=== PATIENT | male | born 1995 | race Caucasian/White ===

== ENCOUNTER 2017-01-14 22:42 | Emergency (ER) | payer SELFPAY ==
[~2017-01-14] VITALS: Ht 180.3 cm; Wt 86.2 kg
[2017-01-14 23:01] VITALS: BP 153/73
--- NOTE | 2017-01-15 00:24 | PHYS DOC ---
Past Medical History Past Medical History: Anxiety, Depression, Other Additional Past Medical Histor: TOURETTE'S Past Surgical History: Other Additional Past Surgical Histo: TESTICLE Alcohol Use: None Drug Use: Opiates Adult General Chief Complaint Chief Complaint: DRUG ABUSE HPI HPI 21-year-old male with a history of paranoid schizophrenia now presents the emergency department because he's been abusing drugs any was thinking about getting detox services. Patient denies suicidality or homicidality. He has not overdosed. Patient states he did bump his forehead against a wall recently creating a scab but his tetanus up-to-date and he has no headache or intent to hurt himself at all this point. He states he's been able to function with his normal activities of daily living, and is not currently having any hallucinations of any kind. He has no other complaints Review of Systems Review of Systems Constitutional: Denies fever or chills [] Eyes: Denies change in visual acuity, redness, or eye pain [] HENT: Denies nasal congestion or sore throat [] Respiratory: Denies cough or shortness of breath [] Cardiovascular: No additional information not addressed in HPI [] GI: Denies abdominal pain, nausea, vomiting, bloody stools or diarrhea [] : Denies dysuria or hematuria [] Musculoskeletal: Denies back pain or joint pain [] Integument: Denies rash or skin lesions [] Neurologic: Denies headache, focal weakness or sensory changes [] Endocrine: Denies polyuria or polydipsia [] All other systems were reviewed and found to be within normal limits, except as documented in this note. Allergies Allergies Allergies Coded Allergies Type Severity Reaction Last Updated Verified No Known Drug Allergies 01/14/17 No Physical Exam Physical Exam Patient with healing scab on his forehead. No bony tenderness or soft tissue swelling or tenderness. Nontender C-spine with normal painless range of motion. Remainder of exam is completely benign. Patient has no active psychosis. He is alert and communicative in a relaxed and normal way. He's exhibiting no evidence of acute psychosis. Exam is otherwise benign Constitutional: Well developed, well nourished, no acute distress, non-toxic appearance. [] HENT: Normocephalic, atraumatic, bilateral external ears normal, oropharynx moist, no oral exudates, nose normal. [] Eyes: PERRLA, EOMI, conjunctiva normal, no discharge. [] Neck: Normal range of motion, no tenderness, supple, no stridor. [] Cardiovascular:Heart rate regular rhythm, no murmur [] Lungs & Thorax: Bilateral breath sounds clear to auscultation [] Abdomen: Bowel sounds normal, soft, no tenderness, no masses, no pulsatile masses. [] Skin: Warm, dry, no erythema, no rash. [] Back: No tenderness, no CVA tenderness. [] Extremities: No tenderness, no cyanosis, no clubbing, ROM intact, no edema. [] Neurologic: Alert and oriented X 3, normal motor function, normal sensory function, no focal deficits noted. [] Psychologic: Affect normal, judgement normal, mood normal. [] Current Patient Data Vital Signs Vital Signs Date Time Temp Pulse Resp B/P (MAP) Pulse Ox O2 Delivery O2 Flow Rate FiO2 01/14/17 23:01 97.6 86 18 153/73 (99) 99 Room Air 97.6 Lab Values Laboratory Tests Test 01/15/17 00:00 POC Hemoglobin 11.9 g/dL (14-18) L POC Hematocrit 35 % (37-52) L POC Sodium 138 mmol/L (135-145) POC Potassium 3.4 mmol/L (3.5-5.0) L POC Chloride 108 mmol/L (98-110) POC Total CO2 24 mmol/L (23-32) Anion Gap 10 mmol/L (6-14) POC Blood Urea Nitrogen 8 mg/dL (8-26) POC Creatinine 0.7 mg/dL (0.5-1.4) Glucose Level 99 mg/dL (70-99) POC Ionized Calcium (Priti) 0.95 mmol/L (1.13-1.32) L Laboratory Tests 01/15/17 00:00 EKG EKG [] Radiology/Procedures Radiology/Procedures [] Course & Med Decision Making Course & Med Decision Making Pertinent Labs and Imaging studies reviewed. (See chart for details) Patient with history of drug abuse but no emergent indication for other psychiatric evaluation or treatment. He is stable and functional with no acute psychosis. No evidence of danger to self or others other than patient's self- destructive behaviors of drug abuse for which he states he will seek outpatient detox treatment if he is inclined. Patient were to follow up with his primary care doctor and his outpatient psychiatric services. No further workup or treatment indicated at this time patient agrees with outpatient follow-up and strict return precautions given Dragon Disclaimer Dragon Disclaimer This electronic medical record was generated, in whole or in part, using a voice recognition dictation system. Departure Departure Impression: Primary Impression: Drug addiction Additional Impression: Anxiety Disposition: HOME, SELF-CARE Condition: GOOD Referrals: NO PCP (PCP) Patient Instructions: Alcohol and Drug Addiction, Finding Treatment, Drug Abuse and Addiction-Sports[facility] Additional Instructions: By your description, you have been struggling with opioid addiction. Follow-up with outpatient treatment services if desired. DIAL 911 or return immediately if you feel you may be a danger to yourself or others. Follow-up with your doctor tomorrow Problem Qualifiers ANCA SMITH MD Jan 15, 2017 00:24
[2017-01-15 09:13] LABS: POTASSIUM ISTAT 3.4 mmol/L (3.5-5.0)
== END 2017-01-15 00:33 | disposition home or self-care (01) ==
LOC: ER 22:42
DX: F19.20 Other psychoactive substance dependence, uncomplicated (principal); F20.0 Paranoid schizophrenia; F32.9 Major depressive disorder, single episode, unspecified
CPT/HCPCS: 36415; 80047; 85014; 85018; 99281; 99282